=== PATIENT | female | born 1960 | race Two or more races ===

== ENCOUNTER → 2019-11-06 10:56 | Outpatient (CLI) | payer OTHER, SELFPAY ==
--- NOTE | ~2019-11-06 | MR_ITS ---
EXAMINATION: MR brain/brain stem wo/w con EXAM DATE: 11/06/2019 11:51 INDICATION: Dizziness, unsteady gait, left-sided head, paresthesia. TECHNIQUE: Magnetic resonance imaging (MRI) of the brain/brain stem obtained without contrast. Sagit ezra T1, axial diffusion, gradient echo (T2*), T1, T2, FLAIR sequences obtained. Patient was then inj ected with 13 cc intravenous Multihance contrast. Axial and coronal postcontrast T1 weighted sequence s obtained. There is no prior study for comparison. FINDINGS: There are no areas of restricted diffusion to suggest acute infarction. There is no acute hemorrhage seen on the T2*, a hemosiderin sensitive sequence. No intraparenchymal brain mass. The ve ntricles are normal in size. There are no extra-axial collections. Flow voids are seen in the cereb ral arteries on the T2-weighted sequences consistent with their expected patency. The orbits are unr emarkable. Soft tissue is unremarkable. There are no areas of abnormal enhancement on the postcont rast images. IMPRESSION: 1. Unremarkable brain MRI examination. Reviewed, dictated and finalized at location B.
--- NOTE | ~2019-11-06 | US_ITS ---
EXAMINATION: US carotid duplex BI DATE: 11/06/2019 12:18 INDICATION: Dizziness and giddiness. Vertigo. Visual disturbances. TECHNIQUE: Grayscale, color Doppler, and pulsed Doppler images of the cervical carotid arteries were obtained. The degree of vessel stenosis is placed in one of the following categories: normal, <50%, 5 0-69%, >=70% but less than near-occlusion, near-occlusion, or total occlusion. Note that percent sten osis relative to normal distal artery lumen diameter is indirectly measured from velocity measurement s as described by Alonso, et al. Radiology 2003; 229:[id number]. COMPARISON: None. FINDINGS: RIGHT: The right common carotid artery (CCA) peak systolic velocity (PSV) is 77 cm/s. The right internal car otid artery (ICA) PSV is 73 cm/s. The right ICA end-diastolic velocity (EDV) is 29 cm/s. The right IC A/CCA PSV ratio is 1.1. Grayscale and color Doppler images yield an estimate of 0% diameter reduction from plaque in the ICA. There is antegrade flow in the right vertebral artery. LEFT: The left CCA PSV is 102 cm/s. The left ICA PSV is 70 cm/s. The left ICA EDV is 32 cm/s. The left ICA/ CCA PSV ratio is 0.9. Grayscale and color Doppler images yield an estimate of 0% diameter reduction f rom plaque in the ICA. There is antegrade flow in the left vertebral artery. IMPRESSION: 1. Normal internal carotid arteries. Reviewed, dictated and finalized at location A.
[2019-11-06 11:30] LABS: Estimated Glomerular Filt Rate > 60
== END ==
PROVIDERS: PCP Physician Assistant; Visit Provider Physician Assistant
DX: R42 Dizziness and giddiness (principal)
CPT/HCPCS: 36415; 70553; 93880; A9577

== ENCOUNTER 2021-06-18 08:59 | Outpatient (CLI) | payer OTHER, SELFPAY ==
--- NOTE | ~2021-06-18 | MM_ITS ---
EXAMINATION: MM screening [facility] BI w sayra HISTORY: Screening mammogram TECHNIQUE: Craniocaudal and mediolateral oblique 3-D tomosynthesis images were obtained and synthetic 2-D images were generated. CAD analysis was submitted and interpreted. COMPARISON: 04/28/2019, 10/30/2015 BREAST PARENCHYMAL COMPOSITION: The breasts are extremely dense, which lowers the sensitivity of mamm ography. FINDINGS: Scattered benign-appearing calcifications are present. There is no evidence of suspicious m ass, calcification, or architectural distortion to suggest malignancy in either breast. There has bee n no suspicious interval change. IMPRESSION: 1. No mammographic evidence of malignancy. 2. Recommend routine screening mammography in one year. BI-RADS Category 2: Benign finding(s). Reviewed, dictated and finalized at location A. ER INSPECTOR
== END 2021-06-18 09:00 | disposition home or self-care (01) ==
LOC: ANHIMG 09:01
PROVIDERS: PCP Family Medicine; Visit Provider Family Medicine
DX: Z12.31 Encounter for screening mammogram for malignant neoplasm of breast (principal)
CPT/HCPCS: 77063; 77067

== ENCOUNTER 2021-07-14 00:48 | Day surgery (SDC) | payer OTHER, SELFPAY ==
[2021-07-07 14:37] VITALS: BMI 23.4
[2021-07-14 11:28] VITALS: BP 150/100; PULSE 73; RESP 16; TEMP 36.4; O2SAT 100
[2021-07-14] MEDS: LACTATED RINGERS 1,000 ML 150 ML IV CONT (11:35)
--- NOTE | 2021-07-14 11:36 | PM.HPGS ---
History of Present Illness History of Present Illness Consent: Risks, benefits, and alternatives have been discussed and questions answered. Patient agrees to proceed with procedure. Chief complaint: neoplasm screening Narrative: Ashleigh Davis is a 61 year old female here for screening colonoscopy Review of Systems Constitutional: Constitutional: Denies headache(s) and Denies weakness Eyes: Eyes: Denies blurry vision ENT: Reports Normal hearing present, Denies headache(s) and Denies neck pain Cardiovascular: Cardiovascular: Denies chest pain and Denies dyspnea Respiratory: Respiratory: Denies dyspnea Gastrointestinal: Gastrointestinal: Reports no additional gastrointestinal complaints Genitourinary: Genitourinary: Denies dysuria Musculoskeletal: Musculoskeletal: Denies neck pain Integumentary/Breasts: Skin/Breast: Denies dry skin Neurologic: Reports Normal hearing present, Denies headache(s) and Denies weakness Psychiatric: Psychiatric: Denies anxiety Endocrine: Endocrine: Denies change in body appearance Hematologic/Lymphatic: Hematologic/Lymphatic: Denies easy bleeding Allergic/Immunologic: Allergic/Immunologic: Denies urticaria PMFSH Past Medical History Medical History (Updated 06/18/21 @ 13:14 by Long Miller MD) Anxiety Asymptomatic microscopic hematuria 2+ blood on urinalysis 05/21/2021 Benign positional vertigo Breast cancer screening by mammogram mammogram 06/18/2021 negative with no change. Chronic anxiety Close exposure to COVID-19 virus Colon cancer screening Encounter for wellness examination in adult Seasonal allergic rhinitis Vertigo Vitamin D insufficiency vitamin-D level low at 22 with goal greater than 30 on 05/21/2021 Family History Family History (Updated 04/14/20 @ 14:13 by Kaila Dumont MA) Mother Hypertension Diabetes mellitus Coronary artery disease Arthritis Father Cerebrovascular accident Sibling Diabetes mellitus Social History Social History Smoking status: Never smoker Alcohol intake: current Drinks per week: 1 Alcohol use details: wine Substance use: never Substance use type: does not use Living arrangements: with family Meds Home Medications and Allergies Home Medications Medication Instructions Recorded Confirmed Type buspirone 15 mg tablet 15 mg PO BID #60 tablet 11/24/20 07/14/21 Rx cholecalciferol (vitamin D3) 25 25 mcg PO DAILY 05/04/21 07/14/21 History mcg (1,000 unit) capsule Allergies Allergy/AdvReac Type Severity Reaction Status Date / Time No Known Allergies Allergy Mild Verified 07/14/21 11:27 Vital Signs Vital Signs - 24 hr 07/14/21 11:28 Temperature 97.6 F Pulse Rate 73 Respiratory Rate 16 Blood Pressure 150/100 H Pulse Oximetry 100 Exam Const: General: comfortable and no acute distress HENMT: General nose exam: Normal nares present Eyes: General: appearance normal, both eyes and all related structures Neck: Neck: no JVD Resp: Auscultation: clear to auscultation bilaterally Cardio: Rate: regular rate Rhythm: regular rhythm GI: Inspection: non-distended GI Palp: Yes Soft to palpation Skin: General skin exam: normal color Neuro: General: gait normal Speech: normal speech Extrem: General: normal to inspection Psych: Mental Status: mental status grossly normal Assessment and Plan Assessment and plan (1) Colon cancer screening: Code(s): Z12.11 - Encounter for screening for malignant neoplasm of colon Status: Acute Assessment and Plan: colonoscopy
[2021-07-14 11:57] VITALS: BP 75/31; PULSE 70; RESP 14; O2SAT 100
[2021-07-14 12:07] VITALS: BP 81/38; PULSE 63; RESP 13; O2SAT 100
[2021-07-14 12:17] VITALS: BP 84/50; PULSE 63; RESP 13; O2SAT 100
[2021-07-14 12:19] VITALS: BP 101/63; PULSE 60; RESP 18; O2SAT 100
== END 2021-07-14 12:31 | disposition home or self-care (01) ==
PROVIDERS: PCP Family Medicine; Visit Provider Internal Medicine Gastroenterology
PROC: 0DJD8ZZ Inspection of Lower Intestinal Tract, Via Natural or Artificial Opening Endoscopic (ICD-10-PCS; CPT 45378; principal; 2021-07-14 13:30)
DX: Z12.11 Encounter for screening for malignant neoplasm of colon (principal); K57.30 Diverticulosis of large intestine without perforation or abscess without bleeding; K64.8 Other hemorrhoids; F41.9 Anxiety disorder, unspecified; E55.9 Vitamin D deficiency, unspecified; R42 Dizziness and giddiness
CPT/HCPCS: 45378; J2704; J7120

== ENCOUNTER 2022-11-16 08:02 | Outpatient (CLI) | payer BC, SELFPAY ==
--- NOTE | ~2022-11-16 | MM_ITS ---
EXAMINATION: MM screening [facility] BI w sayra HISTORY: Screening mammogram TECHNIQUE: Craniocaudal and mediolateral oblique 3-D tomosynthesis images were obtained and synthetic 2-D images were generated. CAD analysis was submitted and interpreted. COMPARISON: 06/18/2021, 04/20/2019, 10/30/2015 BREAST PARENCHYMAL COMPOSITION: The breasts are extremely dense, which lowers the sensitivity of mamm ography. FINDINGS: Scattered benign-appearing calcifications are present. No suspicious mass, calcification, o r architectural distortion are identified in either breast to suggest malignancy. There has been no s uspicious interval change. IMPRESSION: 1. No mammographic evidence of malignancy. 2. Recommend routine screening mammography in one year. BI-RADS Category 2: Benign finding(s). Reviewed, dictated and finalized at location A.
== END 2022-11-16 08:03 | disposition home or self-care (01) ==
PROVIDERS: PCP Family Medicine; Visit Provider Obstetrics & Gynecology
DX: Z12.31 Encounter for screening mammogram for malignant neoplasm of breast (principal)
CPT/HCPCS: 77063; 77067

== ENCOUNTER 2023-11-25 15:26 | Outpatient (CLI) | payer BC, SELFPAY ==
--- NOTE | ~2023-11-25 | MM_ITS ---
EXAMINATION: MM screening [facility] BI w sayra HISTORY: Screening mammogram TECHNIQUE: Craniocaudal and mediolateral oblique 3-D tomosynthesis images were obtained and synthetic 2-D images were generated. CAD analysis was submitted and interpreted. COMPARISON: November 16, 2021, June 18, 2021 bilateral screening mammogram examinations BREAST PARENCHYMAL COMPOSITION: The breasts are extremely dense, which lowers the sensitivity of mamm ography. FINDINGS: Scattered bilateral benign calcifications. There is no evidence of suspicious mass, calcifi cation, or architectural distortion to suggest malignancy in either breast. There has been no suspici ous interval change. IMPRESSION: 1. No mammographic evidence of malignancy. 2. Recommend routine screening mammography in one year. BI-RADS Category 2: Benign finding(s). Reviewed, dictated and finalized at location A.
== END 2023-11-25 15:27 | disposition home or self-care (01) ==
LOC: ANHIMG 15:37
PROVIDERS: PCP Family Medicine; Visit Provider Obstetrics & Gynecology
DX: Z12.31 Encounter for screening mammogram for malignant neoplasm of breast (principal)
CPT/HCPCS: 77063; 77067

== ENCOUNTER 2025-04-07 22:28 | Emergency (ER) | payer BC, SELFPAY ==
--- NOTE | ~2025-04-07 | XR_ITS ---
EXAMINATION: XR chest 1V portable DATE: 04/07/2025 23:08 INDICATION: Chest discomfort TECHNIQUE: A single AP semiupright portable frontal image of the chest was obtained COMPARISON: Chest radiograph dated 07/09/2009 FINDINGS: No focal pulmonary consolidation. No pneumothorax. No pleural effusion. The cardiomediastinal silhouette is normal. Grossly stable biapical scarring, greater on the left. IMPRESSION: 1. No acute pulmonary process identified. Reviewed, dictated and finalized at location Q.
--- NOTE | 2025-04-07 22:31 | ECG_ITS ---
Test Date: 2025-04-07 22:36:17 Measurements Intervals [place] Rate: 66 P: 55 SC: 190 QRS: 36 QRSD: 116 T: 63 QT: 400 QTc: 421 Interpretive Statements SINUS RHYTHM LOW QRS VOLTAGE IN PRECORDIAL LEADS [QRS DEFLECTION < 1.0 mV IN CHEST LEADS] INCOMPLETE RIGHT BUNDLE BRANCH BLOCK [90+ ms QRS DURATION, TERMINAL R IN V1/V2, 40+ ms S IN I/aVL/V4/V5/V6] No previous ECG available for comparison Electronically Signed On 04-08-2025 10:35:38 CDT by Micah Quispe M.D.
[2025-04-07 22:32] VITALS: BP 130/100; PULSE 64; RESP 18; TEMP 36.7; O2SAT 98
--- NOTE | 2025-04-07 23:18 | ED.GENADULT ---
HPI - General Adult General Chief complaint: Unspecified Stated complaint: med reaction Time Seen by Provider: 04/07/25 22:50 Source: patient and family Mode of arrival: ambulatory Limitations: no limitations History of Present Illness HPI narrative: Patient presents with concern for a medication reaction. She is otherwise quite active with few medical conditions but, after bone density testing, her ObGyn Dr Clark prescribed alendronate sodium. Took first dose at 0750am with 8oz water and stated upright for 60 minutes after as per instructions. This evening around 7:30, developed burning sensation with chest discomfort radiating to her back. No globus sensation or feeling like the pill is still stuck. Took 2 Tbsp PeptoBismol and OTC antacid. No nausea/vomiting. Experiences pain with inspiration and a headache. States it feels like heartburn. Cardiac risk factors HTN: No HLD: No DM: No Obese: Does not appear so on exam Smoker: No Personal history MS/TIA/CVA: No Fam Hx MS in first degree relative <65yo: No Related Data Home Medications ?Medication ?Instructions ?Recorded ?Confirmed ?Last Taken ?Type omega 4-oqd-pbp-fish oil 1,200 mg cap PO . q.a.m. 09/21/22 12/18/24 Unknown History (144 mg-216 mg) capsule (Fish Oil) cholecalciferol (vitamin D3) 25 1,000 unit PO DAILY 04/12/23 12/18/24 Unknown History mcg (1,000 unit) capsule cyanocobalamin (vitamin B-12) 1,000 mcg PO DAILY 05/22/24 12/18/24 Unknown History 1,000 mcg tablet loratadine 10 mg tablet (Claritin) 10 mg PO DAILY PRN allergic 12/18/24 12/18/24 Unknown History symptoms Allergies Allergy/AdvReac Type Severity Reaction Status Date / Time No Known Allergies Allergy Mild Verified 07/14/21 11:27 COUNT INCLUDES THE [facility] Past Medical History Medical History Allergic conjunctivitis Vitamin B12 deficiency Level greater than 2000 with hemoglobin 13.7 on 05/24/2024. UTI (urinary tract infection) Plantar fasciitis, right Hypersomnia (~03/2022) COVID-19 (~2021) BMI 24.0-24.9, adult Overactive bladder Abnormal fasting glucose (03/05/22) glucose 100 on 03/02/2022. Fasting glucose 95 on 04/08/2023. Nonfasting glucose 102 with hemoglobin A1c 6.0 on 05/24/2024. BMI 23.0-23.9, adult Breast cancer screening by mammogram mammogram 06/18/2021 negative with no change. Normal mammogram 11/16/2022. Normal 11/25/2023. Colon cancer screening Normal colonoscopy 07/14/2021 with recheck in 10 years Asymptomatic microscopic hematuria 2+ blood on urinalysis 05/21/2021 . Urinalysis 10/29/2021 normal. Urinalysis with trace blood on 04/08/2023. Urinalysis normal on 05/24/2024. Benign positional vertigo Seasonal allergic rhinitis Encounter for wellness examination in adult Vitamin D insufficiency vitamin-D level low at 22 with goal greater than 30 on 05/21/2021 . Level low at 29 on 10/29/2021. Normal at 34 on 03/02/2022. Level normal at 32 on 04/08/2023. Level normal at 45 on 05/24/2024. Chronic anxiety Close exposure to COVID-19 virus Vertigo Anxiety Family History Family History Mother Hypertension Diabetes mellitus Coronary artery disease Arthritis Hyperlipidemia Father Cerebrovascular accident Sibling Diabetes mellitus Social History Social History Smoking status: Never smoker Alcohol intake: current Drinks per week: 1 Alcohol use details: wine Substance use: never Substance use type: does not use Lack of Transportation: No Lack of Food: Never True Current Housing: I Have Housing Concerned About Future Housing: No Difficulty Paying Gas/Electric Bills: No Difficulty Paying for Meds: No Currently Unemployed: No Education: Associate Degree Difficulty w/ Childcare or Family Care: No Living arrangements: with family Exam Narrative: GENERAL: Well-appearing, well-nourished, and in no acute distress. HEAD: Normocephalic, atraumatic. EYES: Non injected, non icteric ENT: Nares clear, no rhinorrhea or epistaxis. Gross auditory acuity intact. NECK: Supple. No meningismus. CHEST: Speaking in full sentences. No respiratory distress. Lungs clear to auscutation bilaterally w/o wheezes/crackles/bronchospasm. HEART: Regular rate and rhythm. . ABDOMEN: Soft, nondistended. No rigidity or guarding. Not peritoneal EXTREMITIES: Normal range of motion. No lower extremity edema. SKIN: Warm, dry, no rash. NEURO: No focal deficits. Alert and oriented. Answering questions. Following commands. Normal speech without aphasia or dysarthria. PSYCH: Normal mood and affect. Course Vital Signs Vital signs: Vital Signs Temperature 98.0 F 04/07/25 22:32 Pulse Rate 64 04/07/25 22:32 Respiratory Rate 18 04/07/25 22:32 Blood Pressure 130/100 H 04/07/25 22:32 Pulse Oximetry 98 04/07/25 22:32 Oxygen Delivery Room Air 04/07/25 22:32 Temperature 98.0 F 04/07/25 22:32 Pulse Rate 63 04/08/25 01:12 Respiratory Rate 20 04/08/25 01:12 Blood Pressure 119/81 04/08/25 00:45 Pulse Oximetry 98 04/08/25 01:12 Oxygen Delivery Room Air 04/07/25 22:32 Medical Decision Making MDM Narrative Medical decision making narrative: Patient presents with concern for medication reaction. Took first dose of alendonate sodium today at 0750am Rx by ObGyn Dr Kory Montero based on bone density testing. Took as prescribed, with 8oz water and stayed upright 60 minutes. This evening started to have chest discomfort, a burning sensation like heartburn radiating to her back with painful inspiration and headache. In the ED she is afebrile with VS that show HTN. HEART SCORE History 2 highly suspicious 1 moderately suspicious 0 slightly suspicious History score [address] depression/elevation not due to LBBB, LVH, or digoxin [address] depression but LBBB, LVH, nonspecific repolarization changes 0 normal ECG score 0 Age 2 >/= 65 1 45-64 0 <45 Age score 1 Risk factors (HTN, hypercholesterolemia, DM, obesity with BMI >30, current smoker or cessation </=3mo), positive fam hx with parent or sibling with CVD before age 65, atherosclerotic disease (prior MS, PCI/CABG, CVA/TIA, or peripheral arterial disease) 2 >/= 3 risk factors or history of atherosclerotic dz 1 - 1-2 risk factors 0 no known risk factors Risk factor score 0 Initial Troponin 2 >3 times normal limit 1 1-3 times normal limit 0 less than or equal to normal limit Troponin score 0 Total HEART Score 1 Dimer negative. CBC generally unremarkable except for mild abnormality on the differential but not eosinophils. Her symptoms do fit known side effect of this medication. Given medication in the ED and rx for short course Pantoprazole. Advised calling Dr Kory Montero to discuss further. Differential Diagnosis Differential Diagnosis: medication side effects, ACS, gastritis/GERD; pill esophagitis, considered impaction; Vital Signs Vital Signs: Vital Signs Temperature 98.0 F 04/07/25 22:32 Pulse Rate 64 04/07/25 22:32 Respiratory Rate 18 04/07/25 22:32 Blood Pressure 130/100 H 04/07/25 22:32 Pulse Oximetry 98 04/07/25 22:32 Oxygen Delivery Room Air 04/07/25 22:32 Temperature 98.0 F 04/07/25 22:32 Pulse Rate 63 04/08/25 01:12 Respiratory Rate 20 04/08/25 01:12 Blood Pressure 119/81 04/08/25 00:45 Pulse Oximetry 98 04/08/25 01:12 Oxygen Delivery Room Air 04/07/25 22:32 Lab Data Lab results reviewed: Yes I reviewed the patient's lab results. Lab results narrative: Chemistry without marked abnormalities. Lipase normal. 04/07/25 23:30 04/07/25 23:30 Labs: Lab Results 04/07/25 04/07/25 Range/Units 23:29 23:30 WBC 6.6 (4.5-10.0) K/mm3 RBC 4.13 L (4.2-5.4) M/mm3 Hgb 12.3 (12.0-15.0) g/dL Hct 38.0 (37.0-47.0) % MCV 92.0 (80-100) fl MCH 29.8 (26-34) pg MCHC 32.4 (32-36) g/dl RDW 12.9 (11.5-14.5) % Plt Count 241 (150-375) k/mm3 MPV 9.8 (7.4-10.4) fl Immature Gran % (Auto) 0.3 (0-0.5) % Neut % (Auto) 59.5 (45.5-73.1) % Lymph % (Auto) 30.8 (18.3-44.2) % Mccracken % (Auto) 5.6 (2.6-8.5) % Eos % (Auto) 3.5 (0-4.4) % Baso % (Auto) 0.3 (0.2-1.2) % Lymph # (Auto) 2.03 (0.9-3.2) K/mm3 M[place]racken # (Auto) 0.4 (0.1-0.6) K/mm3 Eos # (Auto) 0.2 (0-0.3) K/mm3 Baso # (Auto) 0.0 (0.0-0.1) K/mm3 Abs Immat Gran (auto) 0.02 (0.00-0.031) K/mm3 Absolute Neuts (auto) 3.9 (1.3-6.7) K/mm3 Absolute Nucleated RBC 0.000 (0.0-0.012) K/mm3 Nucleated RBC % 0.0 (0.0-0.2) % D-Dimer 0.41 (<0.48) ug/mL Sodium 136 L (137-145) mmol/L Potassium 4.0 (3.4-5.0) mmol/L Chloride 103 (98-107) mmol/L Carbon Dioxide 29 (22-30) mmol/L Anion Gap 4 (4-12) mmol/L BUN 26 H (7-17) mg/dL Creatinine 0.95 (0.7-1.0) mg/dL Estim Creat Clear Calc Not Reportable Estimated GFR 59 (59 - ) Glucose 114 H (65-110) mg/dL Calcium 9.7 (8.4-10.2) mg/dL Total Bilirubin 0.3 (0.2-1.3) mg/dL AST 35 (14-36) U/L ALT 22 (6-35) U/L Alkaline Phosphatase 83 (38-126) U/L Troponin I < 0.012 (0.000-0.034) ng/mL Total Protein 7.1 (6.3-8.2) g/dL Albumin 4.1 (3.5-5.1) g/dL Lipase 166 (23-300) U/L Imaging Data Attestation: I personally reviewed and interpreted this imaging study as follows: My impression: No acute intrathoracic process on my independent interpretation Radiologist's impression: CXR Stat Rad: Prior 07/09/2009 comparison. No acute finding. ECG Data EKG #1: Attestation: I personally reviewed and interpreted this ECG as follows: ECG completion date: 04/07/25 ECG completion time: 22:36 Prior ECG tracings: not available for review (no prior for comparison) Interpretation: Normal sinus rhythm at a rate of 66 beats per minute. ND interval 190. QRS 116 milliseconds. QT/QTC 400/421. Good R-wave progression across the precordial leads. No T-wave inversions. Incomplete RBBB given QRS less [id number]; RSR' M-shaped pattern in V1-V3; though S waves in lateral leads (I, aVL, V5-6) are not markedly wide, slurred . Discharge Plan Discharge Clinical Impression: Medication side effect, Chest pain Patient Disposition: Home Condition: Stable Instructions: Antibiotic Form, Chest Pain (DC) Additional Instructions: You can trial the medication prescribed below which may help for the side effects you are experiencing, likely due to the new medication. Call Dr Kory Montero to discuss (he will be able to see the labs, EKG, imaging, ED note, etc.) whether you should continue taking this medication or if there are other recommendations. It is not felt based on your workup that your issue was directly related to your heart and you are otherwise low risk, but reasonable to proceed at some point with a cardiac work up given your age. Your primary care physician can help arrange this and or the name of a field ring assembler is listed below. Patient Language: Honduran Prescriptions: New pantoprazole 20 mg tablet,delayed release (DR/EC) 20 mg PO HS Qty: 7 0RF No Action omega 4-evt-puc-fish oil [Fish Oil] 1,200 (144-216) mg capsule PO . q.a.m. fluticasone propionate [Flonase Allergy Relief] 50 mcg/actuation spray,suspension 1 spray intranasal BID Qty: 16 11RF Rx Instructions: administer into each nostril loratadine [Claritin] 10 mg tablet 10 mg PO DAILY PRN (Reason: allergic symptoms) cholecalciferol (vitamin D3) 25 mcg (1,000 unit) capsule 1,000 unit PO DAILY cyanocobalamin (vitamin B-12) 1,000 mcg tablet 1,000 mcg PO DAILY buspirone 7.5 mg tablet 7.5 mg PO . q.h.s. Qty: 90 3RF Follow-up/Referrals: Epi Stratton MD [Physician, [employer] CLAIM EXAMINER] Charli Larkin MD [Physician, Cardiology] Long Miller MD [Primary Care Provider, Family Practice] Stand Alone Forms: Work/School Release IP Time of Disposition: 00:45
[2025-04-07 23:34] VITALS: RESP 18; O2SAT 98
[2025-04-07 23:49] LABS: Alanine Aminotransferase 22 U/L (6-35); Albumin Level 4.1 g/dL (3.5-5.1); Alkaline Phosphatase 83 U/L (38-126); Anion Gap 4 mmol/L (4-12); Aspartate Amino Transferase 35 U/L (14-36); Bilirubin,Total 0.3 mg/dL (0.2-1.3); Blood Urea Nitrogen 26 mg/dL (7-17); Calcium 9.7 mg/dL (8.4-10.2); Carbon Dioxide 29 mmol/L (22-30); Chloride 103 mmol/L (98-107); Estimated Glomerular Filt Rate 59; Glucose 114 mg/dL (65-110); Lipase 166 U/L (23-300); Potassium 4.0 mmol/L (3.4-5.0); Sodium 136 mmol/L (137-145); Total Protein 7.1 g/dL (6.3-8.2)
[2025-04-08 00:02] LABS: Troponin I < 0.012 ng/mL (0.000-0.034)
[2025-04-08 00:20] LABS: Hematocrit 38.0 % (37.0-47.0); Hemoglobin 12.3 g/dL (12.0-15.0); Immature Granulocyte Percent A 0.3 % (0-0.5); Lymphocytes Absolute Auto 2.03 K/mm3 (0.9-3.2); Mean Corpuscular HGB Conc 32.4 g/dl (32-36); Mean Corpuscular Hemoglobin 29.8 pg (26-34); Mean Corpuscular Volume 92.0 fl (80-100); Nucleated Red Blood Cells Absolute Auto 0.000 K/mm3 (0.0-0.012); Nucleated Red Blood Cells Perc 0.0 % (0.0-0.2); Platelet Count Result 241 k/mm3 (150-375); Red Blood Count 4.13 M/mm3 (4.2-5.4); White Blood Count 6.6 K/mm3 (4.5-10.0)
[2025-04-08 00:45] VITALS: BP 119/81; PULSE 77; RESP 20; O2SAT 98
[2025-04-08] MEDS: PANTOPRAZOLE SODIUM IV 40 MG VIAL IV PUSH (00:47)
[2025-04-08] MEDS: MORPHINE SULFATE (*CRX) 4 MG/ML INJ IV PUSH (00:48)
[2025-04-08 01:12] VITALS: PULSE 63; RESP 20; O2SAT 98
== END 2025-04-08 01:13 | disposition home or self-care (01) ==
PROVIDERS: Emergency Provider Student in an Organized Health Care Education/Training Program; PCP Family Medicine
DX: R07.89 Other chest pain (principal); T45.8X5A Adverse effect of other primarily systemic and hematological agents, initial encounter; Z87.440 Personal history of urinary (tract) infections; F41.9 Anxiety disorder, unspecified
CPT/HCPCS: 36415; 71045; 80053; 83690; 84484; 85025; 85380; 93005; 96374; 96375; 99284; J2270; J2470